=== PATIENT | male | born 1995 | race Caucasian/White ===

== ENCOUNTER 2022-03-02 12:24 | Emergency (ER) | payer OTHER, SELFPAY ==
--- NOTE | ~2022-03-02 | CT_ITS ---
EXAMINATION: CT abdomen pelvis w con DATE: 03/02/2022 13:59 INDICATION: Constipation. Diarrhea. Abdominal pain. TECHNIQUE: Computed tomography (CT) of the abdomen and pelvis was performed with 100 mL Omnipaque 350 intravenous contrast. Automated exposure control and iterative reconstruction technique were employe d. The dose-length product was 279.59 mGy-cm. COMPARISON: None. FINDINGS: The visualized portions of the lung bases are clear without pneumonia or pleural effusion. The heart size is normal. No pericardial effusion. There is a 5 mm cyst in the liver. The gallbladder , spleen, pancreas, adrenal glands, and kidneys are normal. There are no dilated loops of bowel. The appendix is normal. There are no pathologically enlarged lymph nodes. There is no free intraperitonea l fluid. The bones are unremarkable. IMPRESSION: 1. No etiology for the patient's symptoms. Reviewed, dictated and finalized at location A.
[2022-03-02 12:27] VITALS: BP 152/95; PULSE 128; RESP 20; TEMP 37.1; O2SAT 100
--- NOTE | 2022-03-02 12:40 | ED.GIBLEED ---
HPI - GI Bleed General Chief complaint: Skin/Abscess/Foreign Body Stated complaint: rash stomach issues Time Seen by Provider: 03/02/22 12:26 Source: patient and RN notes reviewed Mode of arrival: ambulatory Limitations: no limitations History of Present Illness HPI Narrative: Patient states he has been having difficulty with his bowels for the last 8-9 months. He was exposed and tested positive for chlamydia about 9 months ago. He said that he was treated when he had a virtual appointment with a physician. He has not been retested. He says his bowel problems consist of difficulty having a bowel movement. He says he draws his legs up to his chest and tries to bear down. He says that his stools seem to be loose rather than constipated. He also has some difficulty with urinations at times. He had a family member that had prostate cancer and he is concerned about that as well. He denies any penile discharge. He denies any fever chills. He states he has been having some blood streak stool. At times he will have some nausea and vomiting but then it resolves. MD complaint: blood streaked stool Onset (ago): month(s) (8) Pain Consistency: intermittent Severity: moderate Relieving factors: none Exacerbating factors: eating and bowel movement Associated symptoms: nausea, vomiting and chills Treatments Prior to Arrival: none Related Data Home Medications Medication Instructions Recorded Confirmed No Home Medications 03/02/22 03/02/22 Allergies Allergy/AdvReac Type Severity Reaction Status Date / Time No Known Allergies Allergy Unknown Unverified 04/12/15 14:05 Review of Systems Review of Systems: All systems reviewed & are unremarkable except as noted in HPI and below PMFSH Past Medical History Medical History (Updated 03/02/22 @ 15:03 by Sky Smith MD) Undescended testicle, unconfirmed Social History Social History (Updated 03/02/22 @ 13:03 by Sky Smith MD) Substance use: current Substance use type: marijuana Exam Const: General: healthy appearing, no acute distress and alert Nutritional Appearance: well nourished Orientation/consciousness: patient oriented x3 Limitations: no limitations HENMT: Head: normal to inspection Ears: external ears normal Face/Nose/Sinus: Normal external nose present Face and sinus: normal facial exam Mouth: Yes moist mucous membranes Eyes: Conjunctivae: conjunctivae normal Pupils: Equal, round and reactive pupils present EOM: EOMs intact bilaterally Neck: Neck: normal visual inspection Resp: Effort & Inspection: normal respiratory effort Auscultation: clear to auscultation bilaterally Cardio: Rate: regular rate Rhythm: regular rhythm GI: GI Palp: Yes Soft to palpation and No Tenderness to palpation present (GI) Auscultation: normal bowel sounds Rectal Exam: normal sphincter tone, No heme positive stool and No hemorrhoids Back/Spine/Pelvis: Back: no CVA tenderness Cervical Spine: cervical ROM normal Thoracic/Lumbar Spine: thoraco-lumbar ROM normal Skin: General skin exam: normal color Rashes: no rashes Neuro: General: patient oriented x3, moves all extremities, no focal motor deficits and CN's II-XI intact bilaterally Speech: normal speech Gait exam (Neuro): Normal gait present Extrem: General: normal to inspection and no clubbing, cyanosis or edema Psych: Mental Status: mental status grossly normal Affect: normal affect Attitude: cooperative Course Vital Signs Vital signs: Vital Signs Temperature 37.1 C 03/02/22 12:27 Pulse Rate 128 H 03/02/22 12:27 Respiratory Rate 20 03/02/22 12:27 Blood Pressure 152/95 H 03/02/22 12:27 Pulse Oximetry 100 03/02/22 12:27 Oxygen Delivery Room Air 03/02/22 12:27 Temperature 36.9 C 03/02/22 15:00 Pulse Rate 118 H 03/02/22 15:00 Respiratory Rate 20 03/02/22 15:00 Blood Pressure 148/94 H 03/02/22 15:00 Pulse Oximetry 98 03/02/22 15:00 Oxygen Delivery Room Air
[2022-03-02 13:19] LABS: Basophils Absolute Auto 0.04 K/mm3 (0.00-0.10); Basophils Percent Auto 0.9 % (0.0-1.0); Eosinophils Absolute Auto 0.38 K/mm3 (0.02-0.50); Eosinophils Percent Auto 8.1 % (1.0-6.0); Hematocrit 44.3 % (40.0-54.0); Hemoglobin 14.8 g/dL (14.0-18.0); Immature Granulocyte Absolute 0.02 K/mm3 (0.00-0.00); Immature Granulocyte Percent A 0.4 % (0.0-0.0); Lymphocytes Absolute Auto 1.49 K/mm3 (1.10-4.50); Lymphocytes Percent Auto 31.7 % (18.0-42.0); Mean Corpuscular HGB Conc 33.4 g/dL (32.0-36.0); Mean Corpuscular Hemoglobin 29.1 pg (27.0-31.0); Mean Platelet Volume 9.3 fl (8.7-11.0); Monocytes Percent Auto 6.4 % (2.0-11.0); Neutrophils Absolute Auto 2.5 K/mm3 (1.7-7.2); Neutrophils Percent Auto 52.5 % (50.0-70.0); Nucleated Red Blood Cells Absolute Auto 0.03 K/mm3 (0.00-0.00); Nucleated Red Blood Cells Perc 0.6 % (0-0.0); Platelet Count Result 243 K/mm3 (150-420); Red Blood Count 5.09 M/mm3 (4.70-6.10); Red Cell Distribution Width 12.9 % (11.6-14.4); White Blood Count 4.7 K/mm3 (4.8-10.8)
[2022-03-02 13:29] LABS: Add Urine Microscopic? NO; Appearance Urine Clear (Clear); Bilirubin Urine Negative (Negative); Blood Urine Negative (Negative); Color Urine Yellow (Yellow); Glucose Urine UA Negative (Negative); Ketones Urine Negative (Negative); Leukocyte Esterase Ur Negative LEU/UL (Negative); Nitrate Urine Negative (Negative); Protein Urine Negative (Negative); Specific Grav Ur 1.015 (1.010-1.020); Urobilinogen Urine 0.2 mg/dL (0.2-1.0)
[2022-03-02 13:34] LABS: Alanine Aminotransferase 19 U/L (16-63); Albumin Level 4.3 g/dL (3.4-5.0); Alkaline Phosphatase 70 U/L (46-116); Anion Gap 7 mmol/L (8-16); Aspartate Amino Transferase < 10 U/L (15-37); Bilirubin,Total 0.7 mg/dL (0.00-1.00); Blood Urea Nitrogen 7 mg/dL (7-18); Calcium 8.8 mg/dL (8.5-10.1); Carbon Dioxide 28 mmol/L (21-32); Chloride 105 mmol/L (98-108); Estimated CRCL calculation 97 ml/min; Estimated Glomerular Filt Rate > 60; Glucose 150 mg/dL (70-99); Magnesium 1.6 mg/dL (1.8-2.4); Osmolality Calculated 291 mOsm/kg (285-295); Potassium 3.8 mmol/L (3.5-5.1); Sodium 140 mmol/L (136-145); Total Protein 7.1 g/dL (6.4-8.2)
[2022-03-02 13:35] LABS: CRP < 0.5 mg/dL (0.0-0.9)
[2022-03-02 14:28] LABS: Hemoglobin A1C 5.4 % (<5.7)
--- NOTE | 2022-03-02 14:39 | PC.NURSE ---
pt resting per cot. no needs at this time. pt ambulated to bathroom. awaiting lab results
[2022-03-02 14:45] LABS: Occult Blood Negative (Negative)
[2022-03-02 15:00] VITALS: BP 148/94; PULSE 118; RESP 20; TEMP 36.9; O2SAT 98
--- NOTE | 2022-03-12 14:17 | PC.NURSE ---
C TRACHOMATIS RNA, N GONORRHOEAE RNA RESULTS: NOT DETECTED FOR BOTH SPECIES. NO ACTION NEEDED
== END 2022-03-02 15:10 | disposition home or self-care (01) ==
PROVIDERS: Emergency Provider Emergency Medicine
DX: R19.4 Change in bowel habit (principal); R21 Rash and other nonspecific skin eruption
CPT/HCPCS: 36415; 74177; 80053; 81003; 82272; 83036; 83735; 85025; 86140; 87491; 87591; 99284; Q9967